=== PATIENT | female | born 1995 | race Caucasian/White ===

== ENCOUNTER 2023-12-22 14:42 | Emergency (ER) | payer SELFPAY ==
[~2023-12-22] VITALS: Ht 160 cm; Wt 69.0 kg
[2023-12-22 14:50] VITALS: O2SAT 100
[2023-12-22 16:44] LABS: CLARITY URINE CLEAR (CLEAR); COLOR URINE YELLOW (YELLOW); GLUCOSE URINE NEGATIVE (NEGATIVE); KETONES URINE TRACE (NEGATIVE); LEUKOCYTE ESTERASE URINE NEGATIVE (NEGATIVE); NITRITE URINE NEGATIVE (NEGATIVE); OCCULT BLOOD URINE NEGATIVE (NEGATIVE); PH URINE 6.5 (4.5-8.0); PROTEIN URINE NEGATIVE (NEGATIVE); SPECIFIC GRAVITY URINE 1.024 (1.005-1.030)
[2023-12-22 17:40] LABS: BASOPHILS % 0.3 % (0.0-2.0); EOSINOPHILS % 1.6 % (0.0-5.0); HEMATOCRIT. 38.4 % (36.0-48.0); HEMOGLOBIN. 12.9 g/dL (12.0-16.0); LYMPHOCYTES % 26.9 % (20.0-50.0); MEAN CORPUSCULAR HEMOGLOBIN 31.2 pg (28.0-32.0); MEAN CORPUSCULAR HGB CONC 33.5 g/dL (31.0-37.0); MEAN CORPUSCULAR VOLUME 93.2 fL (81.0-99.0); MEAN PLATELET VOLUME 10.3 fl (7.4-10.4); MONOCYTES % 7.1 % (2.0-8.0); NEUTROPHILS % 64.1 % (40.0-76.0); PLATELET 272 x1000/uL (130-400); RED BLOOD CELL COUNT 4.12 mill/uL (4.2-5.4); RED CELL DISTRIBUTION WIDTH 12.6 % (11.6-14.6); WHITE BLOOD COUNT 12.8 x1000/uL (4.5-11.0)
[2023-12-22 17:46] LABS: CHLORIDE 106 mEq/L (98-107); POTASSIUM 3.7 mEq/L (3.5-5.1); SODIUM 139 mEq/L (136-145)
[2023-12-22 17:47] LABS: CALCIUM 9.1 mg/dL (8.7-10.4); CARBON DIOXIDE 24 mEq/L (21-32)
[2023-12-22 17:50] LABS: HCG SCREEN NEGATIVE
[2023-12-22 17:52] LABS: CREATININE 0.7 mg/dL (0.6-1.0); GLUCOSE 83 mg/dL (70-105); UREA NITROGEN BLOOD 10 mg/dL (9-23)
[2023-12-22 17:54] LABS: ALANINE AMINOTRANSFERASE 18 IU/L (10-49); ALBUMIN 4.6 g/dL (3.2-4.8); ASPARTATE AMINOTRANSFERASE 17 IU/L (<34); BILIRUBIN DIRECT 0.2 mg/dL (<=3.0); PROTEIN TOTAL 7.5 g/dL (6.0-8.3)
[2023-12-22] MEDS: IBUPROFEN 600MG TABLET PO NR (20:46)
[2023-12-22] MEDS: ACETAMINOPHEN 325MG TABLET PO NR (22:18)
[2023-12-23 02:15] VITALS: BP 132/78; PULSE 77; RESP 16; TEMP 37.00296; O2SAT 100
== END 2023-12-23 01:30 | disposition home or self-care (01) ==
LOC: ER 14:42
DX: R10.2 Pelvic and perineal pain (principal)
CPT/HCPCS: 36415; 74176; 76830; 76856; 80048; 80076; 81003; 84703; 85025; 99284